=== PATIENT | female | born 1945 | race Caucasian/White ===

== ENCOUNTER 2020-10-27 06:49 | Day surgery (SDC) | payer MEDICARE, OTHER, MEDICAID ==
[~2020-10-27 06:49] MED LIST: Lactated Ringers 1,000 ML IV SCH; Lidocaine 1%/Sod Bicarbonate in NS 8.4% 1 ML Syringe IDERM PRN; Morphine 8 MG, EPINEPHrine 0.3 MG, Cefuroxime 750 MG, Ketorolac 30 MG, Sodium Chloride ... PRN; Sodium Chloride 0.9% 10 ML Syringe FLUSH PRN
--- NOTE | 2020-10-27 07:29 | PCM.PREANE ---
Preanesthetic Assessment - Procedure Proposed Procedure: left total knee arthroplasty - Anesthesia/Transfusion/Family Hx Anesthesia History: Prior Anesthesia Without Reaction Family History of Anesthesia Reaction: No Transfusion History: Prior Transfusion Without Reaction - Review of Systems General: No Symptoms Pulmonary: No Symptoms Cardiovascular: No Symptoms Gastrointestinal: No Symptoms Neurological: No Symptoms Other: Reports: Anxiety - Physical Assessment NPO Status Date: 10/26/20 NPO Status Time: 00:00 Height: 1.63 m Weight: 62 kg ASA Class: 3 Mental Status: Alert & Oriented x3 Airway Class: Mallampati = 1 Dentition: Reports: Dentures Thyro-Mental Finger Breadths: 3 Mouth Opening Finger Breadths: 2 ROM/Head Extension: Full Lungs: Clear to Auscultation, Normal Respiratory Effort Cardiovascular: Regular Rate, Irregular Rhythm - Imaging/EKG Impressions: EKG NSR/SB rate53 - Allergies Allergies/Adverse Reactions: Allergies Allergy/AdvReac Type Severity Reaction Status Date / Time cefdinir Allergy Cannot Verified 10/26/20 12:42 Remember guaifenesin Allergy Cannot Verified 10/26/20 12:42 Remember - Anesthesia Plan Pre-Op Medication Ordered: None - Acknowledgements Anesthesia Type Planned: Spinal Pt an Appropriate Candidate for the Planned Anesthesia: Yes Alternatives and Risks of Anesthesia Discussed w Pt/Guardian: Yes Pt/Guardian Understands and Agrees with Anesthesia Plan: Yes PreAnesthesia Questionnaire HEENT History: Reports: Impaired Vision, Other (See Below) Other HEENT History: WEARS GLASSES, WEARS DENTURES Cardiovascular History: Reports: Afib, High Cholesterol, Hypertension Respiratory History: Reports: None Gastrointestinal History: Reports: GERD, Other (See Below) Other Gastrointestinal History: umbilical hernia Genitourinary History: Reports: None [employer] ENGINEER History: Reports: None Musculoskeletal History: Reports: Osteoarthritis, Other (See Below) Other Musculoskeletal History: restless leg syndrome, arm surgery Neurological History: Reports: None Psychiatric History: Reports: Depression Endocrine/Metabolic History: Reports: Diabetes, Type II Hematologic History: Reports: Anemia, Iron Deficiency Immunologic History: Reports: None Oncologic (Cancer) History: Reports: Colon Dermatologic History: Reports: None - Past Surgical History Head Surgeries/Procedures: Reports: None HEENT Surgical History: Reports: Cataract Surgery Cardiovascular Surgical History: Reports: None Respiratory Surgical History: Reports: None GI Surgical History: Reports: Appendectomy, Cholecystectomy, Colon, Colostomy, Other (See Below) Other GI Surgeries/Procedures: partial bowel resection, left hemicolectomy with colostomy Female Surgical History: Reports: Tubal Ligation Male Surgical History: Reports: None Endocrine Surgical History: Reports: None Neurological Surgical History: Reports: None Musculoskeletal Surgical History: Reports: None Oncologic Surgical History: Reports: None Dermatological Surgical History: Reports: None - SUBSTANCE USE Tobacco Use Status *Q: Current Every Day Tobacco User Tobacco Use Within Last Twelve Months: Cigarettes Second Hand Smoke Exposure: No Days Per Week of Alcohol Use: 0 Number of Drinks Per Day: 0 Total Drinks Per Week: 0 Recreational Drug Use History: No - HOME MEDS Home Medications: Home Meds Apixaban [Eliquis] 2.5 mg PO BID #60 tablet 10/26/20 [Rx] Fexofenadine/Pseudoephedrine [Brenda-D 12 Hour Tablet] 1 tab PO BID PRN 10/26/20 [History] Hydrocodone/Acetaminophen [HYDROcodone-Acetaminophen 10-325 MG] 0.5 - 1 tab PO Q4H PRN #30 10/26/20 [Rx] Magnesium Oxide [Magnesium] 500 mg PO BID 10/26/20 [History] Morphine [Morphine 20 MG/ML Soln] 0.25 ml PO Q4H PRN 10/26/20 [History] Multivitamin 1 tab PO DAILY 10/26/20 [History] Mupirocin Calcium [Mupirocin] 1 dose TOP TID PRN 10/26/20 [History] Pantoprazole Sodium [Protonix] 40 mg PO BID 10/26/20 [History] Pregabalin [Lyrica] 75 mg PO BEDTIME 10/26/20 [History] Psyllium Husk [Metamucil] 1 dose PO DAILY PRN 10/26/20 [History] fentaNYL [Duragesic] 25 mcg TOP Q72H 10/26/20 [History] ondansetron HCL [Zofran] 4 mg PO Q4H PRN 10/26/20 [History] rOPINIRole [Requip] 1 mg PO TID 10/26/20 [History] - CURRENT (IN HOUSE) MEDS Current Meds: Current Medications Morphine Sulfate 8 mg/Epinephrine HCl 0.3 mg/Cefuroxime Sodium 750 mg/Ketorolac Tromethamine 30 mg/Sodium Chloride 7.9 ml 0 mg .XX ASDIRECTED PRN PRN Reason: Pain Stop: 10/27/20 16:00 Lactated Ringer's (Ringers, Lactated) 1,000 mls @ 125 mls/hr IV ASDIRECTED RISSA Stop: 10/27/20 23:00 Lidocaine/Sodium Bicarbonate (Lidocaine 1%/Sod Bicarbonate In Ns 8.4% 1 Ml Syringe) 0.25 ml IDERM ONETIME PRN PRN Reason: Prior to IV Start Stop: 10/27/20 18:00 Sodium Chloride (Sodium Chloride 0.9% 10 Ml Syringe) 10 ml FLUSH ASDIRECTED PRN PRN Reason: Keep Vein Open Stop: 10/27/20 18:00 Discontinued Medications Morphine Sulfate 8 mg/Epinephrine HCl 0.3 mg/Cefuroxime Sodium 750 mg/Ketorolac Tromethamine 30 mg/Sodium Chloride 7.9 ml 0 mg .XX ASDIRECTED PRN PRN Reason: Pain Stop: 10/27/20 13:00
[2020-10-27] MEDS ORDERED: Vancomycin 1 GM SDV ONE (07:32)
[2020-10-27] MEDS ORDERED: Triamcinolone Acetonide 40 MG/ML 1 ML SDV ONE (07:32)
[2020-10-27] MEDS ORDERED: EPINEPHrine 1 MG/ML SDV ONE ×2 (07:34→10:38)
[2020-10-27] MEDS ORDERED: Ropivacaine 0.5% 5 MG/ML 30 ML SDV ONE ×2 (07:34→10:38)
[2020-10-27] MEDS ORDERED: Propofol 200 MG/20 ML SDV ONE ×2 (07:40→09:33)
[2020-10-27] MEDS ORDERED: Lidocaine 1% 4 ML ONE (07:41)
[2020-10-27] MEDS ORDERED: Midazolam 1 MG/ML 2 ML SDV ONE (07:41)
[2020-10-27] MEDS ORDERED: ceFAZolin 1 GM Vial ONE (07:52)
[2020-10-27] MEDS ORDERED: Lactated Ringers 1,000 ML ONE (09:14)
[2020-10-27] MEDS: Bupivacaine 0.25% 10 ML SDV ONE ×2 (10:14→10:24)
[2020-10-27] MEDS: Triamcinolone Acetonide 40 MG/ML 1 ML SDV ONE ×2 (10:15→10:24)
--- NOTE | 2020-10-27 10:34 | PCM.POSTAN ---
POST ANESTHESIA ASSESSMENT - MENTAL STATUS Mental Status: Alert, Oriented - VITAL SIGNS Vital Signs: Last Vital Signs Temp 36.2 C 10/27/20 07:30 Pulse 65 10/27/20 07:30 Resp 16 10/27/20 07:30 BP 169/84 H 10/27/20 07:30 Pulse Ox 97 10/27/20 07:30 - RESPIRATORY Respiratory Status: Respiratory Rate WNL, Airway Patent, O2 Saturation Stable - CARDIOVASCULAR CV Status: Pulse Rate WNL, Blood Pressure Stable - GASTROINTESTINAL GI Status: No Symptoms - PAIN Pain Score: 0 - POST OP HYDRATION Hydration Status: Adequate & Stable - OBSERVATIONS Free Text/Narrative:: no anesthesia complications noted
[2020-10-27] MEDS ORDERED: Acetaminophen/HYDROcodone 325-10 MG Tab PO PRN (10:47)
--- NOTE | 2020-10-27 11:35 | PCM.SN.2 ---
- Free Text/Narrative Note: Left selective femoral nerve block at the adductor canal for post-procedure pain control under US guidance requested by Dr. Hall. Date: 10/27/20 Time Out: 1100 Start: 1101 End: 1117 Chart reviewed. Consent signed. Questions answered. Appropriate monitors applied. Time out performed. Left mid-shaft femur identified with ultrasound, scanning medially of femur, the femoral artery in the adductor canal visualized, and the femoral nerve located laterally to the artery. The skin was prepped lateral to the ultrasound probe with chlorahexadine times three. The 21ga 4 insulated block needle was inserted under direct ultrasound guidance into the adductor canal. 25mL of 0.5% ropivacaine with 1:200,000 epinephrine was injected circumferentially around the nerve with intermittent negative aspiration noted. Patient tolerated the procedure well. Sterile technique noted along with sterile gloves, mask, and sterile probe cover. See picture on progress note and vital signs on nurses notes. Block completed in PACU. Morenita Oliveira CRNA
--- NOTE | 2020-10-27 11:35 | CR ---
Left knee: AP and crosstable lateral views of the left knee were obtained. Comparison: Prior CT left knee study of 10/13/20. Knee prosthesis is seen. Patellar prosthesis is also noted. Components are aligned. Mild vascular calcification is seen. Soft tissue air is seen. No acute osseous abnormality is otherwise seen. Impression: 1. Satisfactory postop radiographic appearance of recently placed left knee prostheses. Diagnostic code #2
--- NOTE | 2020-10-27 14:54 | PCM48HPAN ---
Post Anesthesia Note - EVALUATION WITHIN 48HRS OF ANESTHETIC Vital Signs in Normal Range: Yes Patient Participated in Evaluation: Yes Respiratory Function Stable: Yes Airway Patent: Yes Cardiovascular Function Stable: Yes Hydration Status Stable: Yes Pain Control Satisfactory: Yes Nausea and Vomiting Control Satisfactory: Yes Mental Status Recovered: Yes Vital Signs: Last Vital Signs Temp 98.6 F 10/27/20 12:00 Pulse 83 10/27/20 14:26 Resp 17 10/27/20 14:26 BP 119/64 10/27/20 14:26 Pulse Ox 97 10/27/20 14:26
--- NOTE | 2020-11-04 10:54 | PCM.OPNOTE ---
- General Post-Op/Procedure Note Date of Surgery/Procedure: 10/27/20 Operative Procedure(s): left total knee arthroplasty with [employer] robot[employer] and right knee corticosteroid injection Pre Op Diagnosis: bilateral knee osteoarthrsis Post-Op Diagnosis: Same Anesthesia Technique: Local, MAC, Spinal Primary Surgeon: Ignacio Hall Anesthesia Provider: Lobo Posada Assembler Metal Building: Jessi Yepez Assembler Metal Building: Vanessa Pond in mLs: 5 Complications: None Condition: Good Free Text/Narrative:: 4 4 10 32x10
--- NOTE | 2020-11-04 11:43 | OR ---
DATE OF OPERATION: 10/27/2020 SURGEON: Ignacio Hall MD OPERATION PERFORMED: Left total knee arthroplasty with [employer] [employer] and right knee corticosteroid injection. PREOPERATIVE DIAGNOSIS: Bilateral knee osteoarthrosis. POSTOPERATIVE DIAGNOSIS: Bilateral knee osteoarthrosis. ANESTHESIA: Local MAC with spinal. ANESTHESIA PROVIDER: Sudeep Donohue. EMISSIONS TESTING TECHNICIAN: Jessi Yepez PA-C; and Vanessa Gonzalez RN. ESTIMATED BLOOD LOSS: 5 mL. COMPLICATIONS: None. CONDITION: Stable. IMPLANTS: 1. [place] size 4 cemented PS femur. 2. Dario size 4 cemented Wallace tibial baseplate. 3. Dario size 4 10 mm PS X3 polyethylene. 4. [place] size 32 x 10 mm cemented asymmetric patella. DESCRIPTION OF PROCEDURE: The patient was identified in the preop holding area. Proper site was marked and identified by the surgeon. The patient was taken back to the operating theater where after adequate anesthesia, the patient's left lower extremity had a nonsterile tourniquet applied and it was sterilely prepped and draped in the usual sterile fashion. OR time-out was performed. The patient received 2 g IV Ancef . Leg joseph was then applied to the left lower extremity. At this time, the left lower extremity was exsanguinated. Tourniquet was insufflated to 250 mmHg . Standard anterior incision was made. Medial parapatellar arthrotomy was created. Deep fibers of the MCL were raised as well as anterior fat pad was resected. Attention was turned to the patella. Patella measured a 24 mm; it was resected to a 14 mm for a 32 x 10 mm patella. Drill holes were then drilled. Attention was then turned to the femur. Two 4.0 pins were placed intra-incisionally for the [place] [employer] robotic array and then 2 more were placed on the tibia 3 fingerbreadths below the tibial tubercle. The Dario Daniel robotic arrays were placed on both the femur and the tibia then at this time as well as checkpoints on the femur and tibia. Hip center rotation was then obtained. The medial and lateral malleoli were marked. At this time, 40 points were obtained off the femur and the tibia for the [place] [employer] robotic plan. The patient's knee was brought to full extension. Varus and valgus stresses were applied and then into 90 degrees of flexion with a curved osteotome. Varus and valgus stresses were applied. At this time, [employer] robotic plan was done to 19 mm gaps in both flexion and extension. Dario Mako robotic arm was then brought in. A straight saw blade was then used for the tibial cut, the anterior femoral cut, the anterior chamfer cut, and the posterior femoral cut. All bony fragments were removed. Saw blade was then switched out and the distal femoral cut as well as the posterior chamfer cut was completed. At this time, medial and lateral menisci were resected as well as any posterior osteophytes. A size 4 mm trial tibia was then placed, size 4 mm trial femur was placed, and a size 4 10 mm PS X3 polyethylene trial liner was placed. The patient's knee was brought to full extension and flexion. Varus and valgus stresses were applied, was found to be stable with no instability. No signs of liftoff or loosening were noted. At this time, box cut was completed on the femur. The pins were removed from the femur and the tibia as well as the arrays and the checkpoints. Cement was mixed on the back table. All cut surfaces were irrigated with pulse lavage irrigation with Ancef and then completely dried. Once the cement was ready, the [place] size 4 mm cemented Wallace tibial base plate having been previously stamped and drilled, was then cemented in place on the tibia. The Dario size 4 mm cemented femur was cemented into place. The patient had a [place] size 4 10 mm PS X3 polyethylene insert placed. The patient's knee was brought to full extension. Excess cement was removed. A Dario size 32 x 10 mm cemented asymmetric patella was then cemented into place. 1 L of pulse lavage irrigation with Ancef was irrigated through the knee along with 400 mL of IrriSept irrigation. Periarticular injection was completed. Topical tranexamic acid and vancomycin powder were applied. A #2 barbed suture was used for closure of the medial parapatellar arthrotomy in flexion. 2-0 Vicryl and Stratafix were used for subcutaneous closure. Prineo was used for cutaneous closure. The patient had a sterile soft dressing applied. The tibial holes were closed with nylon, and this was also covered with a sterile soft dressing. The patient had an MARIA LUISA wrap applied and was sent to PACU in stable condition. The patient tolerated the procedure well. Under sterile technique, 2 mL of 40 mg Kenalog and 4 mL of 0.25% Marcaine were injected in the patient's right knee. She tolerated all procedures well. DERRICK /[id number]
== END 2020-10-27 14:26 | disposition home or self-care (01) ==
LOC: JD.SDS 06:49
PROVIDERS: ATTEND Orthopaedic Surgery
DX: M17.0 Bilateral primary osteoarthritis of knee (principal); I10 Essential (primary) hypertension; K21.9 Gastro-esophageal reflux disease without esophagitis; E78.5 Hyperlipidemia, unspecified; I48.0 Paroxysmal atrial fibrillation; C18.7 Malignant neoplasm of sigmoid colon; D47.3 Essential (hemorrhagic) thrombocythemia; G89.18 Other acute postprocedural pain; Z90.49 Acquired absence of other specified parts of digestive tract; Z01.812 Encounter for preprocedural laboratory examination; Z20.822 Contact with and (suspected) exposure to COVID-19; Z88.8 Allergy status to other drugs, medicaments and biological substances; Z79.899 Other long term (current) drug therapy
CPT/HCPCS: 20610; 27447; 73560; 97116; 97161; C1713; C1776; J0171; J0690; J0697; J1885; J2250; J2270; J2704; J2795; J3301; J3370; J3490; J7120; U0002; 01402; 64450; 76942

== ENCOUNTER → 2021-07-21 | Day surgery (SDC) | payer MEDICARE, OTHER, MEDICAID ==
[~2021-07-21] MED LIST changes: +Acetaminophen 325 MG Tab PO SCH; +Acetaminophen/HYDROcodone 325-10 MG Tab PO PRN; +EPINEPHrine 1 MG/ML SDV ONE; +HYDROmorphone 0.5 MG/0.5 ML Syringe IVPUSH PRN; +Lactated Ringers 1,000 ML ONE; +Midazolam 1 MG/ML 2 ML SDV ONE; -Morphine 8 MG, EPINEPHrine 0.3 MG, Cefuroxime 750 MG, Ketorolac 30 MG, Sodium Chloride ... PRN; +Ondansetron 4 MG/2 ML SDV IVPUSH PRN; +Ondansetron 4 MG/2 ML SDV ONE; +Pregabalin 25 MG Cap PO SCH; +Propofol 200 MG/20 ML SDV ONE; +Ropivacaine 0.5% 5 MG/ML 30 ML SDV ONE; +Sodium Chloride 0.9% 10 ML Syringe FLUSH SCH; +ceFAZolin 1 GM Vial ONE; +fentaNYL 100 MCG/2 ML SDV IVPUSH PRN; +fentaNYL 100 MCG/2 ML SDV ONE; +oxyCODONE ER 10 MG TAB.ER PO SCH; +rOPINIRole 1 MG Tab PO STA
[2021-07-21] MEDS: Morphine 8 MG, EPINEPHrine 0.3 MG, Cefuroxime 750 MG, Ketorolac 30 MG, Sodium Chloride ... PRN ×10 (07:57→08:16)
[2021-07-21] MEDS: Vancomycin 1 GM SDV ONE ×2 (07:57→08:22)
== END | disposition home or self-care (01) ==
LOC: JD.SDS 05:35
PROVIDERS: ATTEND Orthopaedic Surgery
DX: M17.11 Unilateral primary osteoarthritis, right knee (principal); I10 Essential (primary) hypertension; D50.8 Other iron deficiency anemias; K21.9 Gastro-esophageal reflux disease without esophagitis; E78.00 Pure hypercholesterolemia, unspecified; F17.210 Nicotine dependence, cigarettes, uncomplicated; Z79.899 Other long term (current) drug therapy; Z88.8 Allergy status to other drugs, medicaments and biological substances; Z90.49 Acquired absence of other specified parts of digestive tract; Z98.890 Other specified postprocedural states
CPT/HCPCS: 0055T; 27447; 73560; 97116; 97161; A9270; C1713; C1776; J0171; J0690; J0697; J1885; J2250; J2270; J2405; J2704; J2795; J3010; J3370; J7120; 01402; 64447; 76942